=== PATIENT | female | born 1960 | race Caucasian/White ===

== ENCOUNTER → 2018-07-07 | Outpatient (CLI) | payer BC ==
--- NOTE | 2018-07-07 17:35 | KCIC ---
Bilateral digital screening mammograms: Reason for examination: Routine screening. Comparison is made to previous studies dated 12/12/2015 and 06/28/2014. Interpretation was made with the benefit of CAD. The skin show no abnormalities. The right nipple appears to be slightly flattened/inverted when compared to previous exam. No abnormal axillary lymph nodes are seen. The breast parenchyma shows scattered fibroglandular density. (Breast density: Category B.) There is some focally increased parenchymal density in the subareolar position of the right breast. Recommend further evaluation with coned compression views and ultrasound. There are no other dominant masses, suspicious calcifications or architectural distortions. Impression: Focal increased nodularity in the subareolar position of the right breast. Recommend further evaluation with coned compression views and ultrasound. BI-RADS Category 0: Incomplete. Needs additional imaging evaluation. "Our facility is accredited by the [employer] Mammography [employer]." This patient's information has been entered into a reminder system for the patient to be notified with the results of her examination and a target date for the next mammogram. Electronically signed by: April Montgomery MD (07/07/2018 5:32 PM) [id number]
== END | disposition home or self-care (01) ==
LOC: KCIC MAMMO 17:01
PROVIDERS: ATTEND Obstetrics & Gynecology
DX: Z12.31 Encounter for screening mammogram for malignant neoplasm of breast (principal)
CPT/HCPCS: 77067

== ENCOUNTER → 2018-07-24 | Outpatient (CLI) | payer BC ==
--- NOTE | 2018-07-24 17:26 | KCIC ---
Right breast diagnostic digital mammograms: Reason for examination: Nodular density in the subareolar position of the right breast on screening mammogram. Comparison is made to mammographic exam dated 08/06/2018. Coned compression views were obtained in CC, oblique and lateral projections. Nodular asymmetry persists in the subareolar position of the right breast. Further evaluation with ultrasound will follow. IMPRESSION: Nodular asymmetry in the subareolar position of the right breast. Ultrasound to follow. BI-RADS Category 0: Incomplete. Needs additional imaging evaluation. Right breast ultrasound: Ultrasound examination of the right breast was performed with attention to the retroareolar area and right axilla. There is a heterogeneous hypoechoic nodule which is taller than wide in the retroareolar position measuring 1.2 x 1 cm in greatest dimensions. Further evaluation with ultrasound biopsy is recommended. No other cystic or solid lesions are seen. No abnormal appearing lymph nodes are seen in the axilla. IMPRESSION: 1.2 x 1 cm nodule in the retroareolar position of the right breast which corresponds to the area of mammographic concern. Recommend further evaluation with ultrasound biopsy. BI-RADS Category 4: Suspicious. These findings have been discussed with the patient and the patient's physician will be notified about these findings when their office reopens in the morning. "Our facility is accredited by the [employer] Mammography [employer]." This patient's information has been entered into a reminder system for the patient to be notified with the results of her examination and a target date for the next mammogram. Electronically signed by: April Montgomery MD (07/24/2018 5:22 PM) [id number]
== END | disposition home or self-care (01) ==
LOC: KCIC MAMMO 09:42
PROVIDERS: ATTEND Obstetrics & Gynecology
DX: N63.11 Unspecified lump in the right breast, upper outer quadrant (principal)
CPT/HCPCS: 76641; 77065

== ENCOUNTER 2020-01-26 05:22 | Inpatient (IN) | payer BC ==
[~2020-01-26] VITALS: Ht 162.6 cm; Wt 59.0 kg
[2020-01-26] MEDS ORDERED: fentaNYL PF VIAL 100 MCG/2 ML VIAL IVP ONE (07:15)
[2020-01-26] MEDS ORDERED: PIPERACILLIN/TAZOBACTAM 3.375 GM in IV NORMAL SALINE 50ML 50 ML IV ONE (07:15)
[2020-01-26 07:42] LABS: BASO % 1 % (0-3); EOS % 0 % (0-3); HEMATOCRIT 40.9 % (36.0-47.0); HEMOGLOBIN 14.4 g/dL (12.0-15.5); LYMPH # 0.9 x10^3/uL (1.0-4.8); LYMPH % 8 % (24-48); MEAN CORPUSCULAR HEMOGLOBIN 33 pg (25-35); MEAN CORPUSCULAR HGB CONC 35 g/dL (31-37); MEAN CORPUSCULAR VOLUME 95 fL (79-100); MONO # 1.1 x10^3/uL (0.0-1.1); MONO % 10 % (0-9); NEUT # 8.6 x10^3/uL (1.8-7.7); NEUT % 81 % (31-73); PLATELET COUNT 222 x10^3/uL (140-400); RED BLOOD COUNT 4.32 x10^6/uL (3.50-5.40); RED CELL DISTRIBUTION WIDTH 13.8 % (11.5-14.5); WHITE BLOOD COUNT 10.6 x10^3/uL (4.0-11.0)
[2020-01-26 07:52] LABS: CALCIUM 8.4 mg/dL (8.5-10.1); CREATININE 0.7 mg/dL (0.6-1.0); GFR 85.6; POTASSIUM 4.3 mmol/L (3.5-5.1)
[2020-01-26 08:00] LABS: ALBUMIN 3.4 g/dL (3.4-5.0); ALBUMIN/GLOBULIN RATIO 1.2 (1.0-1.7); TOTAL BILIRUBIN 0.5 mg/dL (0.2-1.0); TOTAL PROTEIN 6.2 g/dL (6.4-8.2)
[2020-01-26] MEDS ORDERED: IOHEXOL 300 MG/ML 100ML VIAL. IV ONE (08:30)
--- NOTE | 2020-01-26 08:59 | RAD ---
CT pelvis with contrast PQRS statement: CT scans at this facility use dose reduction including either automated exposure control, iterative reconstructions, and /or weight based radiation dosing via mA and kV modification when appropriate to reduce radiation dose to as low as reasonably achievable. Contrast: 75 mL Omnipaque 300 intravenous contrast. HISTORY: Rectal pain and swelling. Perirectal abscess. FINDINGS: L5-S1 degenerative disc disease with disc height loss, disc bulge and endplate spurring as well as facet osteoarthritis with spurring with spinal canal and neural foraminal stenoses. Sigmoid diverticulosis. Uterus, ovaries, bladder unremarkable. Plaquing of the iliac arteries and femoral arteries. There is not a well delineated ring-enhancing abscess. At the region of the anal canal slightly right of midline there is an indistinct 3 cm oblong hypodensity best demonstrated axial images 70-78, sagittal images 50-61 and coronal images 46-53, it is possible this represents edematous thickening and enlargement of the anal canal itself although given that it is somewhat eccentric from midline a perianal abscess is possible. There is also asymmetric soft tissue edema along the right medial buttock leading up to the intergluteal cleft and anal canal. There is a moderate volume of stool within the rectum. No adenopathy. IMPRESSION: Soft tissue edema of the right medial buttock leading up to the intergluteal cleft and anal canal. There is indistinct 3 cm oblong hypodensity at the region of the anal canal slightly right of midline which could be edematous thickening of the anal canal though given the eccentric positioning a ill-defined early developing perianal abscess is possible, although there is no ring enhancement present to definitively differentiate a drainable abscess from localized phlegmonous edema. This may be more definitively characterized with MR imaging. Electronically signed by: Mario Grayson MD (01/26/2020 8:56 AM) [id number]
--- NOTE | 2020-01-26 09:12 | PHYS DOC ---
Past Medical History Past Medical History: Alcoholism, Cancer Past Surgical History: Cancer Surgery Additional Past Surgical Histo: Right breast Smoking Status: Current Every Day Smoker Additional Information: 1 ppd Alcohol Use: Heavy Additional Information: 1-2 beers per day General Adult EDM: Chief Complaint: RECTAL PAIN HPI: HPI: Patient is a 59 year old female who presented to ER today for evaluation of rectal pain since last Saturday. Patient complained of pain with bowel movement. Patient denies any fever, no nausea vomiting, no abdominal pain. Patient has history of breast cancer status post remission. Patient denies any cough, no fever, no trouble breathing. Patient denies any recent exposure to anybody who tested positive for COVID-19. Review of Systems: Review of Systems: Constitutional: Denies fever or chills. [] Eyes: Denies change in visual acuity. [] HENT: Denies nasal congestion or sore throat. [] Respiratory: Denies cough or shortness of breath. [] Cardiovascular: Denies chest pain or edema. [] GI: Denies abdominal pain, nausea, vomiting, bloody stools or diarrhea. Positive for rectal pain : Denies dysuria. [] Musculoskeletal: Denies back pain or joint pain. [] Integument: Denies rash. [] Neurologic: Denies headache, focal weakness or sensory changes. [] Endocrine: Denies polyuria or polydipsia. [] Lymphatic: Denies swollen glands. [] Psychiatric: Denies depression or anxiety. [] Heart Score: Risk Factors: Risk Factors: DM, Current or recent (<one month) smoker, HTN, HLP, family history of CAD, obesity. Risk Scores: Score 0 - 3: 2.5% MACE over next 6 weeks - Discharge Home Score 4 - 6: 20.3% MACE over next 6 weeks - Admit for Clinical Observation Score 7 - 10: 72.7% MACE over next 6 weeks - Early Invasive Strategies Current Medications: Current Medications Medications (Trade) Dose Ordered Sig/Alona Start Time Stop Time Status Last Admin Dose Admin Fentanyl Citrate (Fentanyl 2ml Vial) 50 mcg 1X ONCE 01/26/20 07:15 01/26/20 07:16 DC 01/26/20 07:32 50 MCG Iohexol (Omnipaque 300 Mg/ml) 75 ml 1X ONCE 01/26/20 08:30 01/26/20 08:31 DC 01/26/20 08:45 75 ML Piperacillin Sod/ Tazobactam Sod 3.375 gm/Sodium Chloride 50 ml @ 100 mls/hr 1X ONCE 01/26/20 07:15 01/26/20 07:44 DC 01/26/20 07:34 100 MLS/HR Allergies: Allergies: Allergies Coded Allergies Type Severity Reaction Last Updated Verified No Known Drug Allergies 01/26/20 No Physical Exam: PE: Constitutional: Well developed, well nourished, no acute distress, non-toxic appearance. [] HENT: Normocephalic, atraumatic, bilateral external ears normal, oropharynx moist, no oral exudates, nose normal. [] Eyes: PERRLA, EOMI, conjunctiva normal, no discharge. [] Neck: Normal range of motion, no tenderness, supple, no stridor. [] Cardiovascular:Heart rate regular rhythm, no murmur [] Lungs & Thorax: Bilateral breath sounds clear to auscultation [] Abdomen: Bowel sounds normal, soft, no tenderness, no masses, no pulsatile masses. RECTAL EXAM: LARGE NON-THROMBOSED EXTERNAL HEMORRHOID AT 9 OCLOCK POSITION. THERE IS A TENDER, SWOLLEN MASS ON RIGHT SIDE PERIRECTAL AREA, RIGHT BUTTOCK IS SWOLLEN. Skin: Warm, dry, no erythema, no rash. [] Back: No tenderness, no CVA tenderness. [] Extremities: No tenderness, no cyanosis, no clubbing, ROM intact, no edema. [] Neurologic: Alert and oriented X 3, normal motor function, normal sensory function, no focal deficits noted. [] Psychologic: Affect normal, judgement normal, mood normal. [] Current Patient Data: Labs: Laboratory Tests Test 01/26/20 07:25 White Blood Count 10.6 x10^3/uL (4.0-11.0) Red Blood Count 4.32 x10^6/uL (3.50-5.40) Hemoglobin 14.4 g/dL (12.0-15.5) Hematocrit 40.9 % (36.0-47.0) Mean Corpuscular Volume 95 fL (79-100) Mean Corpuscular Hemoglobin 33 pg (25-35) Mean Corpuscular Hemoglobin Concent 35 g/dL (31-37) Red Cell Distribution Width 13.8 % (11.5-14.5) Platelet Count 222 x10^3/uL (140-400) Neutrophils (%) (Auto) 81 % (31-73) H Lymphocytes (%) (Auto) 8 % (24-48) L Monocytes (%) (Auto) 10 % (0-9) H Eosinophils (%) (Auto) 0 % (0-3) Basophils (%) (Auto) 1 % (0-3) Neutrophils # (Auto) 8.6 x10^3/uL (1.8-7.7) H Lymphocytes # (Auto) 0.9 x10^3/uL (1.0-4.8) L Monocytes # (Auto) 1.1 x10^3/uL (0.0-1.1) Eosinophils # (Auto) 0.0 x10^3/uL (0.0-0.7) Basophils # (Auto) 0.0 x10^3/uL (0.0-0.2) Prothrombin Time 13.0 SEC (11.7-14.0) Prothrombin Time INR 1.0 (0.8-1.1) Activated Partial Thromboplast Time 25 SEC (24-38) Sodium Level 140 mmol/L (136-145) Potassium Level 4.3 mmol/L (3.5-5.1) Chloride Level 104 mmol/L (98-107) Carbon Dioxide Level 27 mmol/L (21-32) Anion Gap 9 (6-14) Blood Urea Nitrogen 8 mg/dL (7-20) Creatinine 0.7 mg/dL (0.6-1.0) Estimated GFR (Cockcroft-Gault) 85.6 BUN/Creatinine Ratio 11 (6-20) Glucose Level 121 mg/dL (70-99) H Calcium Level 8.4 mg/dL (8.5-10.1) L Total Bilirubin 0.5 mg/dL (0.2-1.0) Aspartate Amino Transferase (AST) 16 U/L (15-37) Alanine Aminotransferase (ALT) 25 U/L (14-59) Alkaline Phosphatase 90 U/L (46-116) Total Protein 6.2 g/dL (6.4-8.2) L Albumin 3.4 g/dL (3.4-5.0) Albumin/Globulin Ratio 1.2 (1.0-1.7) Laboratory Tests 01/26/20 07:25 Laboratory Tests 01/26/20 07:25 Vital Signs: Vital Signs Date Time Temp Pulse Resp B/P (MAP) Pulse Ox O2 Delivery O2 Flow Rate FiO2 01/26/20 08:04 73 16 114/59 (77) 98 Room Air 01/26/20 05:39 98.0 98.0 EKG: EKG: [] Radiology/Procedures: Radiology/Procedures: [][facility] [address] [place] [address] IMAGING REPORT Signed PATIENT: SANDRITA ZHENG AACCOUNT: [id number] : 1960 LOCATION: ER AGE: 59 SEX: F EXAM STATUS: REG ER ORD. PHYSICIAN: MAGY ARRIAGA DO REASON: RECTAL PAIN AND SWELLING, EVALUATE FOR PERIRECTAL ABSCESS PROCEDURE: CT PELVIS W/CONTRAST CT pelvis with contrast PQRS statement: CT scans at this facility use dose reduction including either automated exposure control, iterative reconstructions, and /or weight based radiation dosing via mA and kV modification when appropriate to reduce radiation dose to as low as reasonably achievable. Contrast: 75 mL Omnipaque 300 intravenous contrast. HISTORY: Rectal pain and swelling. Perirectal abscess. FINDINGS: L5-S1 degenerative disc disease with disc height loss, disc bulge and endplate spurring as well as facet osteoarthritis with spurring with spinal canal and neural foraminal stenoses. Sigmoid diverticulosis. Uterus, ovaries, bladder unremarkable. Plaquing of the iliac arteries and femoral arteries. There is not a well delineated ring-enhancing abscess. At the region of the anal canal slightly right of midline there is an indistinct 3 cm oblong hypodensity best demonstrated axial images 70-78, sagittal images 50-61 and coronal images 46-53, it is possible this represents edematous thickening and enlargement of the anal canal itself although given that it is somewhat eccentric from midline a perianal abscess is possible. There is also asymmetric soft tissue edema along the right medial buttock leading up to the intergluteal cleft and anal canal. There is a moderate volume of stool within the rectum. No adenopathy. IMPRESSION: Soft tissue edema of the right medial buttock leading up to the intergluteal cleft and anal canal. There is indistinct 3 cm oblong hypodensity at the region of the anal canal slightly right of midline which could be edematous thickening of the anal canal though given the eccentric positioning a ill-defined early developing perianal abscess is possible, although there is no ring enhancement present to definitively differentiate a drainable abscess from localized phlegmonous edema. This may be more definitively characterized with MR imaging. Electronically signed by: Spenser Grayson MD (01/26/2020 8:56 AM) [id number] DICTATED and SIGNED BY: SPENSER GRAYSON MD DATE: 01/26/20 0856 Course & Med Decision Making: Course & Med Decision Making Pertinent Labs and Imaging studies reviewed. (See chart for details) Patient is a 59-year-old female who was evaluated in the ER due to rectal pain, CT scan of her pelvic show she had early case of perianal abscess. Patient will be admitted for pain control and IV antibiotic, general surgeon Dr. Babak Vazquez was consulted who will see the patient today. Fernando Disclaimer: Fernando Disclaimer: This electronic medical record was generated, in whole or in part, using a voice recognition dictation system. Departure Departure Impression: Primary Impression: Perianal abscess Disposition: ADMITTED INPATIENT Admitting Physician: PHYLLIS Condition: STABLE (DR. MEJIA) Referrals: NO PCP (PCP) MAGY ARRIAGA DO Jan 26, 2020 09:12
[2020-01-26] MEDS ORDERED: ACETAMINOPHEN 325 MG TABLET. PO PRN (10:00)
[2020-01-26] MEDS ORDERED: DOCUSATE SODIUM 100 MG CAPSULE. PO PRN (10:00)
[2020-01-26] MEDS ORDERED: ZOLPIDEM 5 MG TABLET. PO PRN (10:00)
[2020-01-26] MEDS ORDERED: PIPERACILLIN/TAZOBACTAM 4.5 GM in IV NORMAL SALINE 100ML 100 ML IV SCH (10:00)
[2020-01-26] MEDS ORDERED: LORazepam 0.5 MG TABLET PO PRN (10:00)
[2020-01-26] MEDS ORDERED: ONDANSETRON PF 4 MG/2 ML VIAL. IV PRN ×2 (10:00→10:15)
[2020-01-26] MEDS ORDERED: guaiFENesin ORAL 200 MG/10 ML LIQUID. PO PRN (10:00)
[2020-01-26] MEDS ORDERED: ALBUTEROL SULFATE 2.5 MG/3 ML NEBU. NEB PRN (10:00)
[2020-01-26] MEDS ORDERED: MORPHINE SULFATE 4 MG/ML VIAL. IV PRN (10:15)
[2020-01-26] MEDS: MORPHINE SULFATE 2 MG/ML VIAL. IV PRN ×2 (10:25→21:58)
[2020-01-26] MEDS: IV NORMAL SALINE 1000ML BAG 1,000 ML IV SCH ×2 (10:27→21:58)
[2020-01-26 12:00] VITALS: BP 122/66
[2020-01-26] MEDS ORDERED: ANAS1TAB47 PO (12:44)
[2020-01-26] MEDS ORDERED: DOCU-109 PO (12:44)
[2020-01-26] MEDS: PIPERACILLIN/TAZOBACTAM 3.375 GM in IV NORMAL SALINE 50ML 50 ML IV SCH ×3 (12:49→23:59)
--- NOTE | 2020-01-26 12:56 | PDOC2 ---
CONSULT Date of Consult Date of Consult DATE: 01/26/20 TIME: 12:55 History of Present Illness Reason for Visit: The patient is a 59 year old female who reported with perirectal pain for the last few days. She denies nausea or vomiting. The ER evaluation including a CT scan were suggestive of a perirectal abscess Past Medical History Past Medical History ETOH, breast cancer Past Surgical History Past Surgical History mastectomy Social History 1 pack per day ALCOHOL: heavy Current Problem List Problem List Problems Medical Problems: (1) Perianal abscess Status: Acute Current Medications Current Medications Current Medications Fentanyl Citrate (Fentanyl 2ml Vial) 50 mcg 1X ONCE IVP Last administered on 01/26/20at 07:32; Start 01/26/20 at 07:15; Stop 01/26/20 at 07:16; Status DC Piperacillin Sod/ Tazobactam Sod 3.375 gm/Sodium Chloride 50 ml @ 100 mls/hr 1X ONCE IV Last administered on 01/26/20at 07:34; Start 01/26/20 at 07:15; Stop 01/26/20 at 07:44; Status DC Iohexol (Omnipaque 300 Mg/ml) 75 ml 1X ONCE IV Last administered on 01/26/20at 08:45; Start 01/26/20 at 08:30; Stop 01/26/20 at 08:31; Status DC Sodium Chloride 1,000 ml @ 100 mls/hr Q10H IV Last administered on 01/26/20at 10:27; Start 01/26/20 at 09:58 Ondansetron HCl (Zofran) 4 mg PRN Q4HRS PRN IV NAUSEA/VOMITING; Start 01/26/20 at 10:00 Zolpidem Tartrate (Ambien) 5 mg PRN QHS PRN PO INSOMNIA; Start 01/26/20 at 10:00 Acetaminophen (Tylenol) 650 mg PRN Q4HRS PRN PO TEMP OVER 100.4F OR MILD PAIN; Start 01/26/20 at 10:00 Docusate Sodium (Colace) 100 mg PRN BID PRN PO HARD STOOLS; Start 01/26/20 at 10:00 Albuterol Sulfate (Ventolin Neb Soln) 2.5 mg PRN Q4HRS PRN NEB SHORTNESS OF BREATH; Start 01/26/20 at 10:00 Guaifenesin (Robitussin) 200 mg PRN Q4HRS PRN PO COUGH; Start 01/26/20 at 10:00 Lorazepam (Ativan) 0.5 mg PRN Q4HRS PRN PO ANXIETY / AGITATION; Start 01/26/20 at 10:00 Piperacillin Sod/ Tazobactam Sod 4.5 gm/Sodium Chloride 100 ml @ 200 mls/hr Q6H IV ; Start 01/26/20 at 10:00; Status UNV Morphine Sulfate (Morphine Sulfate) 2 mg PRN Q3HRS PRN IV severe pain Last administered on 01/26/20at 10:25; Start 01/26/20 at 10:00 Ondansetron HCl (Zofran) 4 mg PRN Q8HRS PRN IV NAUSEA/VOMITING; Start 01/26/20 at 10:15; Stop 01/27/20 at 10:14 Morphine Sulfate (Morphine Sulfate) 4 mg PRN Q2HR PRN IV PAIN Last administered on 01/26/20at 12:48; Start 01/26/20 at 10:15; Stop 01/27/20 at 10:14 Piperacillin Sod/ Tazobactam Sod 3.375 gm/Sodium Chloride 50 ml @ 100 mls/hr Q6HRS IV Last administered on 01/26/20at 12:49; Start 01/26/20 at 12:00 Ondansetron HCl (Zofran) 4 mg PRN Q6HRS PRN IV NAUSEA/VOMITING; Start 01/27/20 at 07:00; Stop 01/28/20 at 06:59; Status UNV Fentanyl Citrate (Fentanyl 2ml Vial) 25 mcg PRN Q5MIN PRN IV MILD PAIN 1-3; Start 01/27/20 at 07:00; Stop 01/28/20 at 06:59; Status UNV Fentanyl Citrate (Fentanyl 2ml Vial) 50 mcg PRN Q5MIN PRN IV MODERATE TO SEVERE PAIN; Start 01/27/20 at 07:00; Stop 01/28/20 at 06:59; Status UNV Morphine Sulfate (Morphine Sulfate) 1 mg PRN Q10MIN PRN IV SEVERE PAIN 7-10; Start 01/27/20 at 07:00; Stop 01/28/20 at 06:59; Status UNV Ringer's Solution 1,000 ml @ 30 mls/hr Q24H IV ; Start 01/27/20 at 07:00; Stop 01/27/20 at 18:59; Status UNV Lidocaine HCl (Xylocaine-Mpf 1% 2ml Vial) 2 ml PRN 1X PRN ID PRIOR TO IV START; Start 01/27/20 at 07:00; Stop 01/28/20 at 06:59; Status UNV Hydromorphone HCl (Dilaudid) 0.5 mg PRN Q10MIN PRN IV SEV PAIN, Second choice; Start 01/27/20 at 07:00; Stop 01/28/20 at 06:59; Status UNV Prochlorperazine Edisylate (Compazine) 5 mg PACU PRN PRN IV NAUSEA, MRX1; Start 01/27/20 at 07:00; Stop 01/28/20 at 06:59; Status UNV Active Scripts Active Reported Arimidex (Anastrozole) 1 Mg Tablet 1 Tab PO DAILY 30 Days Colace (Docusate Sodium) 100 Mg Capsule 100 Mg PO DAILY Allergies Allergies: Coded Allergies: No Known Drug Allergies (Unverified , 01/26/20) ROS General: No: Chills, Night Sweats, Fatigue, Malaise, Appetite, Other PSYCHOLOGICAL ROS: YES: Disorientation Eyes: No Blurry vision, No Decreased vision, No Double vision, No Dry eyes, No Excessive tearing, No Eye Pain, No Itchy Eyes, No Loss of vision, No Photophobia, No Scotomata, No Uses contacts, No Uses glasses, No Other HEENT: No: Heacaches, Visual Changes, Hearing change, Nasal congestion, Nasal discharge, Oral lesions, Sinus pain, Sore Throat, Epistaxis, Sneezing, Snoring, Tinnitus, Vertigo, Vocal changes, Other ALLERGY AND IMMUNOLOGY: No: Hives, Insect Bite Sensitivity, Itchy/Watery Eyes, Nasal Congestion, Post Nasal Drip, Seasonal Allergies, Other Hematological and Lymphatic: No: Bleeding Problems, Blood Clots, Blood Transf usions, Brusing, Night Sweats, Pallor, Swollen Lymph Nodes, Other Breast: No New/Changing Breast Lumps, No Nipple changes, No Nipple discharge, No Other Respiratory: No: Cough, Hemoptysis, Orthopnea, Pleuritic Pain, Shortness of breath, SOB with excertion, Sputum Changes, Stridor, Tachypnea, Wheezing, Other Cardiovascular: No Chest Pain, No Palpitations, No Orthopnea, No Paroxysmal Noc. Dyspnea, No Edema, No Lt Headedness, No Other Gastrointestinal: No Nausea, No Vomiting, No Abdominal Pain, No Diarrhea, No Constipation, No Melena, No Hematochezia, No Other Genitourinary: No Dysuria, No Frequency, No Incontinence, No Hematuria, No Retention, No Discharge, No Urgency, No Pain, No Flank Pain, No Other, No , No , No , No , No , No , No Musculoskeletal: No Gait Disturbance, No Joint Pain, No Joint Stiffness, No Joint Swelling, No Muscle Pain, No Muscular Weakness, No Pain In:, No Swelling In:, No Other Neurological: No Behavorial Changes, No Bowel/Bladder ControlChng, No Confusion, No Dizziness, No Gait Disturbance, No Headaches, No Impaired Coord/balance, No Memory Loss, No Numbness/Tingling, No Seizures, No Speech Problems, No Tremors, No Visual Changes, No Weakness, No Other Skin: No Dry Skin, No Eczema, No Hair Changes, No Lumps, No Mole Changes, No Mottling, No Nail Changes, No Pruritus, No Rash, No Skin Lesion Changes, No Other, No Acne Physical Exam Physical Exam R perirectal abscess, purulent fluid present General: Alert, Oriented X3, Cooperative HEENT: Atraumatic Lungs: Clear to auscultation Abdomen: Soft, No tenderness Extremities: No clubbing, No cyanosis Skin: No rashes Vitals VITALS Vital Signs Date Time Temp Pulse Resp B/P (MAP) Pulse Ox O2 Delivery O2 Flow Rate FiO2 01/26/20 12:48 Room Air 01/26/20 12:00 99.2 68 17 122/66 (84) 97 99.2 Labs Labs Laboratory Tests Test 01/26/20 07:25 White Blood Count 10.6 x10^3/uL (4.0-11.0) Red Blood Count 4.32 x10^6/uL (3.50-5.40) Hemoglobin 14.4 g/dL (12.0-15.5) Hematocrit 40.9 % (36.0-47.0) Mean Corpuscular Volume 95 fL (79-100) Mean Corpuscular Hemoglobin 33 pg (25-35) Mean Corpuscular Hemoglobin Concent 35 g/dL (31-37) Red Cell Distribution Width 13.8 % (11.5-14.5) Platelet Count 222 x10^3/uL (140-400) Neutrophils (%) (Auto) 81 % (31-73) Lymphocytes (%) (Auto) 8 % (24-48) Monocytes (%) (Auto) 10 % (0-9) Eosinophils (%) (Auto) 0 % (0-3) Basophils (%) (Auto) 1 % (0-3) Neutrophils # (Auto) 8.6 x10^3/uL (1.8-7.7) Lymphocytes # (Auto) 0.9 x10^3/uL (1.0-4.8) Monocytes # (Auto) 1.1 x10^3/uL (0.0-1.1) Eosinophils # (Auto) 0.0 x10^3/uL (0.0-0.7) Basophils # (Auto) 0.0 x10^3/uL (0.0-0.2) Prothrombin Time 13.0 SEC (11.7-14.0) Prothromb Time International Ratio 1.0 (0.8-1.1) Activated Partial Thromboplast Time 25 SEC (24-38) Sodium Level 140 mmol/L (136-145) Potassium Level 4.3 mmol/L (3.5-5.1) Chloride Level 104 mmol/L (98-107) Carbon Dioxide Level 27 mmol/L (21-32) Anion Gap 9 (6-14) Blood Urea Nitrogen 8 mg/dL (7-20) Creatinine 0.7 mg/dL (0.6-1.0) Estimated GFR (Cockcroft-Gault) 85.6 BUN/Creatinine Ratio 11 (6-20) Glucose Level 121 mg/dL (70-99) Calcium Level 8.4 mg/dL (8.5-10.1) Total Bilirubin 0.5 mg/dL (0.2-1.0) Aspartate Amino Transf (AST/SGOT) 16 U/L (15-37) Alanine Aminotransferase (ALT/SGPT) 25 U/L (14-59) Alkaline Phosphatase 90 U/L (46-116) Total Protein 6.2 g/dL (6.4-8.2) Albumin 3.4 g/dL (3.4-5.0) Albumin/Globulin Ratio 1.2 (1.0-1.7) Laboratory Tests Test 01/26/20 07:25 White Blood Count 10.6 x10^3/uL (4.0-11.0) Red Blood Count 4.32 x10^6/uL (3.50-5.40) Hemoglobin 14.4 g/dL (12.0-15.5) Hematocrit 40.9 % (36.0-47.0) Mean Corpuscular Volume 95 fL (79-100) Mean Corpuscular Hemoglobin 33 pg (25-35) Mean Corpuscular Hemoglobin Concent 35 g/dL (31-37) Red Cell Distribution Width 13.8 % (11.5-14.5) Platelet Count 222 x10^3/uL (140-400) Neutrophils (%) (Auto) 81 % (31-73) Lymphocytes (%) (Auto) 8 % (24-48) Monocytes (%) (Auto) 10 % (0-9) Eosinophils (%) (Auto) 0 % (0-3) Basophils (%) (Auto) 1 % (0-3) Neutrophils # (Auto) 8.6 x10^3/uL (1.8-7.7) Lymphocytes # (Auto) 0.9 x10^3/uL (1.0-4.8) Monocytes # (Auto) 1.1 x10^3/uL (0.0-1.1) Eosinophils # (Auto) 0.0 x10^3/uL (0.0-0.7) Basophils # (Auto) 0.0 x10^3/uL (0.0-0.2) Prothrombin Time 13.0 SEC (11.7-14.0) Prothromb Time International Ratio 1.0 (0.8-1.1) Activated Partial Thromboplast Time 25 SEC (24-38) Sodium Level 140 mmol/L (136-145) Potassium Level 4.3 mmol/L (3.5-5.1) Chloride Level 104 mmol/L (98-107) Carbon Dioxide Level 27 mmol/L (21-32) Anion Gap 9 (6-14) Blood Urea Nitrogen 8 mg/dL (7-20) Creatinine 0.7 mg/dL (0.6-1.0) Estimated GFR (Cockcroft-Gault) 85.6 BUN/Creatinine Ratio 11 (6-20) Glucose Level 121 mg/dL (70-99) Calcium Level 8.4 mg/dL (8.5-10.1) Total Bilirubin 0.5 mg/dL (0.2-1.0) Aspartate Amino Transf (AST/SGOT) 16 U/L (15-37) Alanine Aminotransferase (ALT/SGPT) 25 U/L (14-59) Alkaline Phosphatase 90 U/L (46-116) Total Protein 6.2 g/dL (6.4-8.2) Albumin 3.4 g/dL (3.4-5.0) Albumin/Globulin Ratio 1.2 (1.0-1.7) Assessment/Plan Assessment/Plan Perirectal abscess, recommend I and D. The patient was not tested for Covid. P er OR protocol will order stat, schedule for surgery tomorrow pending results. ABBY AVILA MD Jan 26, 2020 12:56
--- NOTE | 2020-01-26 14:29 | PDOC1 ---
History and Physical Date of Admission Date of Admission 01/26/2020 Identification/Chief Complaint Chief Complaint Rectal pain Source Source: Chart review, Patient History of Present Illness History of Present Illness Patient is a 59-year-old female who was in her usual state of health until Saturday prior to her admission approximately 4 days prior to her admission when she started complaining of some constipation and developed after some straining perirectal pain. The patient denied any bleeding no fever or chills no diaphoresis the patient denies any recent use of antibiotics. The patient has tried to self medicate at home with Advil due to the discomfort that she has experienced over the last couple days. The pain she describes as a sharp sensation 7-8 out of 10 intensity on the worst episodes with no associated symptoms. The patient denies urinary symptoms no recent trauma to the affected area was reported either. She denies any headache no chest pain no palpitations no nausea or vomiting no diarrhea reported. Of note is that the patient had history of breast cancer, over the right side, and she received chemoradiation last year. She was found to have the following findings on the CAT scan of her pelvis Soft tissue edema of the right medial buttock leading up to the intergluteal cleft and anal canal. There is indistinct 3 cm oblong hypodensity at the region of the anal canal slightly right of midline which could be edematous thickening of the anal canal though given the eccentric positioning a ill-defined early developing perianal abscess is possible, although there is no ring enhancement present to definitively differentiate a drainable abscess from localized phlegmonous edema. This may be more definitively characterized with MR imaging. She will be admitted for further evaluation and treatment, at the time of my note the only complaint is discomfort over the affected area, plan of care explained in detail and all of her concerns were addressed to the best of my abilities Past Medical History Heme/Onc: Other (Breast cancer) Family History Family History: Other (Reviewed and found negative and noncontributory to the present) Social History Smoke: 1 pack per day ALCOHOL: heavy Current Problem List Problem List Problems Medical Problems: (1) Perianal abscess Status: Acute Current Medications Current Medications Current Medications Medications (Trade) Dose Ordered Sig/Alona Start Time Stop Time Status Last Admin Dose Admin Acetaminophen (Tylenol) 650 mg PRN Q4HRS PRN 01/26/20 10:00 Albuterol Sulfate (Ventolin Neb Soln) 2.5 mg PRN Q4HRS PRN 01/26/20 10:00 Docusate Sodium (Colace) 100 mg PRN BID PRN 01/26/20 10:00 Fentanyl Citrate (Fentanyl 2ml Vial) 50 mcg PRN Q5MIN PRN 01/27/20 07:00 01/28/20 06:59 Guaifenesin (Robitussin) 200 mg PRN Q4HRS PRN 01/26/20 10:00 Hydromorphone HCl (Dilaudid) 0.5 mg PRN Q10MIN PRN 01/27/20 07:00 01/28/20 06:59 Iohexol (Omnipaque 300 Mg/ml) 75 ml 1X ONCE 01/26/20 08:30 01/26/20 08:31 DC 01/26/20 08:45 75 ML Lidocaine HCl (Xylocaine-Mpf 1% 2ml Vial) 2 ml PRN 1X PRN 01/27/20 07:00 01/28/20 06:59 Lorazepam (Ativan) 0.5 mg PRN Q4HRS PRN 01/26/20 10:00 Morphine Sulfate (Morphine Sulfate) 1 mg PRN Q10MIN PRN 01/27/20 07:00 01/28/20 06:59 Ondansetron HCl (Zofran) 4 mg PRN Q6HRS PRN 01/27/20 07:00 01/28/20 06:59 Piperacillin Sod/ Tazobactam Sod 3.375 gm/Sodium Chloride 50 ml @ 100 mls/hr Q6HRS 01/26/20 12:00 01/26/20 12:49 100 MLS/HR Piperacillin Sod/ Tazobactam Sod 4.5 gm/Sodium Chloride 100 ml @ 200 mls/hr Q6H 01/26/20 10:00 UNV Prochlorperazine Edisylate (Compazine) 5 mg PACU PRN PRN 01/27/20 07:00 01/28/20 06:59 Ringer's Solution 1,000 ml @ 30 mls/hr Q24H 01/27/20 07:00 01/27/20 18:59 Sodium Chloride 1,000 ml @ 100 mls/hr Q10H 01/26/20 09:58 01/26/20 10:27 100 MLS/HR Zolpidem Tartrate (Ambien) 5 mg PRN QHS PRN 01/26/20 10:00 Allergies Allergies Allergies Coded Allergies Type Severity Reaction Last Updated Verified No Known Drug Allergies 01/26/20 No ROS Review of System CONSTITUTIONAL: No fever or chills EYES: No recent changes SKIN: No rash or itching CARDIOVASCULAR: No chest pain, syncope, palpitations, or edema RESPIRATORY: No SOB or cough GASTROINTESTINAL: No nausea, vomiting or abdominal pain NEUROLOGICAL: No headaches or weakness ENDOCRINE: No cold or heat intolerance GENITOURINARY: No urgency or frequency of urination MUSCULOSKELETAL: No back pain or joint pain LYMPHATICS: No enlarged lymph nodes PSYCHIATRIC: No anxiety or depression Physical Exam Physical Exam GEN.: No apparent distress. Alert and oriented. HEENT: Head is normocephalic, atraumatic NECK: Supple. LUNGS: Clear to auscultation. HEART: RRR, S1, S2 present. Peripheral pulses intact ABDOMEN: Soft, nontender. Positive bowel sounds. EXTREMITIES: Without any cyanosis. NEUROLOGIC: Normal speech, normal tone PSYCHIATRIC: Normal affect, normal mood. SKIN: No ulcerations Vitals Vitals Vital Signs Date Time Temp Pulse Resp B/P (MAP) Pulse Ox O2 Delivery O2 Flow Rate FiO2 01/26/20 13:22 Room Air 01/26/20 12:00 99.2 68 17 122/66 (84) 97 99.2 Labs Labs Laboratory Tests Test 01/26/20 07:25 White Blood Count 10.6 x10^3/uL (4.0-11.0) Red Blood Count 4.32 x10^6/uL (3.50-5.40) Hemoglobin 14.4 g/dL (12.0-15.5) Hematocrit 40.9 % (36.0-47.0) Mean Corpuscular Volume 95 fL (79-100) Mean Corpuscular Hemoglobin 33 pg (25-35) Mean Corpuscular Hemoglobin Concent 35 g/dL (31-37) Red Cell Distribution Width 13.8 % (11.5-14.5) Platelet Count 222 x10^3/uL (140-400) Neutrophils (%) (Auto) 81 % (31-73) Lymphocytes (%) (Auto) 8 % (24-48) Monocytes (%) (Auto) 10 % (0-9) Eosinophils (%) (Auto) 0 % (0-3) Basophils (%) (Auto) 1 % (0-3) Neutrophils # (Auto) 8.6 x10^3/uL (1.8-7.7) Lymphocytes # (Auto) 0.9 x10^3/uL (1.0-4.8) Monocytes # (Auto) 1.1 x10^3/uL (0.0-1.1) Eosinophils # (Auto) 0.0 x10^3/uL (0.0-0.7) Basophils # (Auto) 0.0 x10^3/uL (0.0-0.2) Prothrombin Time 13.0 SEC (11.7-14.0) Prothromb Time International Ratio 1.0 (0.8-1.1) Activated Partial Thromboplast Time 25 SEC (24-38) Sodium Level 140 mmol/L (136-145) Potassium Level 4.3 mmol/L (3.5-5.1) Chloride Level 104 mmol/L (98-107) Carbon Dioxide Level 27 mmol/L (21-32) Anion Gap 9 (6-14) Blood Urea Nitrogen 8 mg/dL (7-20) Creatinine 0.7 mg/dL (0.6-1.0) Estimated GFR (Cockcroft-Gault) 85.6 BUN/Creatinine Ratio 11 (6-20) Glucose Level 121 mg/dL (70-99) Calcium Level 8.4 mg/dL (8.5-10.1) Total Bilirubin 0.5 mg/dL (0.2-1.0) Aspartate Amino Transf (AST/SGOT) 16 U/L (15-37) Alanine Aminotransferase (ALT/SGPT) 25 U/L (14-59) Alkaline Phosphatase 90 U/L (46-116) Total Protein 6.2 g/dL (6.4-8.2) Albumin 3.4 g/dL (3.4-5.0) Albumin/Globulin Ratio 1.2 (1.0-1.7) Laboratory Tests Test 01/26/20 07:25 White Blood Count 10.6 x10^3/uL (4.0-11.0) Red Blood Count 4.32 x10^6/uL (3.50-5.40) Hemoglobin 14.4 g/dL (12.0-15.5) Hematocrit 40.9 % (36.0-47.0) Mean Corpuscular Volume 95 fL (79-100) Mean Corpuscular Hemoglobin 33 pg (25-35) Mean Corpuscular Hemoglobin Concent 35 g/dL (31-37) Red Cell Distribution Width 13.8 % (11.5-14.5) Platelet Count 222 x10^3/uL (140-400) Neutrophils (%) (Auto) 81 % (31-73) Lymphocytes (%) (Auto) 8 % (24-48) Monocytes (%) (Auto) 10 % (0-9) Eosinophils (%) (Auto) 0 % (0-3) Basophils (%) (Auto) 1 % (0-3) Neutrophils # (Auto) 8.6 x10^3/uL (1.8-7.7) Lymphocytes # (Auto) 0.9 x10^3/uL (1.0-4.8) Monocytes # (Auto) 1.1 x10^3/uL (0.0-1.1) Eosinophils # (Auto) 0.0 x10^3/uL (0.0-0.7) Basophils # (Auto) 0.0 x10^3/uL (0.0-0.2) Prothrombin Time 13.0 SEC (11.7-14.0) Prothromb Time International Ratio 1.0 (0.8-1.1) Activated Partial Thromboplast Time 25 SEC (24-38) Sodium Level 140 mmol/L (136-145) Potassium Level 4.3 mmol/L (3.5-5.1) Chloride Level 104 mmol/L (98-107) Carbon Dioxide Level 27 mmol/L (21-32) Anion Gap 9 (6-14) Blood Urea Nitrogen 8 mg/dL (7-20) Creatinine 0.7 mg/dL (0.6-1.0) Estimated GFR (Cockcroft-Gault) 85.6 BUN/Creatinine Ratio 11 (6-20) Glucose Level 121 mg/dL (70-99) Calcium Level 8.4 mg/dL (8.5-10.1) Total Bilirubin 0.5 mg/dL (0.2-1.0) Aspartate Amino Transf (AST/SGOT) 16 U/L (15-37) Alanine Aminotransferase (ALT/SGPT) 25 U/L (14-59) Alkaline Phosphatase 90 U/L (46-116) Total Protein 6.2 g/dL (6.4-8.2) Albumin 3.4 g/dL (3.4-5.0) Albumin/Globulin Ratio 1.2 (1.0-1.7) VTE Prophylaxis Ordered VTE Prophylaxis Devices: Yes VTE Pharmacological Prophylaxi: No Assessment/Plan Assessment/Plan Perirectal pain Suspected perianal abscess History of hemorrhoids History of constipation History of breast cancer currently in remission Hyperglycemia of unknown clinical significance, she denies compatible symptoms of diabetes Plan Consult surgery Broad-spectrum antibiotic Pain management Resume home medications once available for review DVT prophylaxis with SCDs Justicifation of Admission Dx: Justifications for Admission: Justification of Admission Dx: Yes Comments: Perianal abscess requiring surgical assessment MIGUEL MEJIA MD Jan 26, 2020 14:29
[2020-01-26 15:00] VITALS: BP 124/68
[2020-01-26 19:00] VITALS: BP 113/65
[2020-01-26 23:00] VITALS: BP 102/54
[2020-01-27] VITALS (12 sets, daily range): BP systolic 94–125; BP diastolic 40–79
[2020-01-27] MEDS: IV NORMAL SALINE 1000ML BAG 1,000 ML IV SCH ×2 (05:58→15:58)
[2020-01-27] MEDS: PIPERACILLIN/TAZOBACTAM 3.375 GM in IV NORMAL SALINE 50ML 50 ML IV SCH ×4 (06:01→23:42)
[2020-01-27] MEDS ORDERED: PROCHLORPERAZINE 10 MG/2 ML VIAL. IV PRN (07:00)
[2020-01-27] MEDS ORDERED: ONDANSETRON PF 4 MG/2 ML VIAL. IV PRN (07:00)
[2020-01-27] MEDS ORDERED: fentaNYL PF VIAL 100 MCG/2 ML VIAL IV PRN (07:00)
[2020-01-27] MEDS ORDERED: IV RINGERS,LACTATED 1000ML 1,000 ML IV SCH (07:00)
[2020-01-27] MEDS ORDERED: LIDOCAINE 1% PF 2 ML VIAL. ID PRN (07:00)
[2020-01-27] MEDS ORDERED: HYDROmorphone 2 MG/ML VIAL IV PRN (07:00)
[2020-01-27] MEDS ORDERED: MORPHINE SULFATE 2 MG/ML VIAL. IV PRN (07:00)
[2020-01-27] MEDS ORDERED: PROPOFOL 10 MG/ML (20ML) VIAL. IV ONE (08:30)
[2020-01-27] MEDS ORDERED: LIDOCAINE 2% PF 5 ML VIAL. ONE (08:30)
[2020-01-27] MEDS ORDERED: MIDAZOLAM HCL/PF 2 MG/2 ML VIAL. ONE (08:30)
[2020-01-27] MEDS ORDERED: ONDANSETRON PF 4 MG/2 ML VIAL. ONE (08:30)
[2020-01-27] MEDS ORDERED: fentaNYL PF VIAL 100 MCG/2 ML VIAL ONE ×2 (08:30→11:20)
[2020-01-27] MEDS ORDERED: DEXAMETHASONE SOD PHOS 4 MG/ML VIAL ONE (08:30)
--- NOTE | 2020-01-27 09:35 | PDOC ---
PROGRESS NOTES History of Present Illness History of Present Illness VTE Prophylaxis Ordered VTE Prophylaxis Devices: Yes VTE Pharmacological Prophylaxi: No impression Assessment/Plan Perirectal pain perianal abscess History of hemorrhoids History of constipation History of breast cancer currently in remission Hyperglycemia of unknown clinical significance, she denies compatible symptoms of diabetes Plan Consult surgery Broad-spectrum antibiotic Pain management Resume home medications once available for review DVT prophylaxis with SCDs d/w RN Operative Note Operative Note: Preoperative Diagnosis: Perirectal abscess Postoperative Diagnosis: Perianal mass, perirectal abscess Procedure: Incision and drainage of perirectal abscess, excision of perianal mass Surgeon: George Anesthesia: General EBL: 10 mL Specimen: Perianal mass to pathology Drains: None Complications: None Justicifation of Admission Dx: Justicifation of Admission Dx: Justifications for Admission: Justification of Admission Dx: Yes Comments: Perianal abscess requiring surgical assessment Vitals Vitals Vital Signs Date Time Temp Pulse Resp B/P (MAP) Pulse Ox O2 Delivery O2 Flow Rate FiO2 01/27/20 08:50 98.0 63 15 125/71 98 Room Air 98.0 Physical Exam General: Alert, Oriented X3, Cooperative Heart: Regular rate Lungs: Clear Abdomen: Normal bowel sounds, Soft, No tenderness Extremities: No clubbing, No cyanosis Skin: No rashes Assessment and Plan Assessmemt and Plan Problems Medical Problems: (1) Perianal abscess Status: Acute Comment Review of Relevant I have reviewed the following items chantel (where applicable) has been applied. Labs Laboratory Tests Test 01/26/20 07:25 01/26/20 09:18 White Blood Count 10.6 x10^3/uL (4.0-11.0) Red Blood Count 4.32 x10^6/uL (3.50-5.40) Hemoglobin 14.4 g/dL (12.0-15.5) Hematocrit 40.9 % (36.0-47.0) Mean Corpuscular Volume 95 fL (79-100) Mean Corpuscular Hemoglobin 33 pg (25-35) Mean Corpuscular Hemoglobin Concent 35 g/dL (31-37) Red Cell Distribution Width 13.8 % (11.5-14.5) Platelet Count 222 x10^3/uL (140-400) Neutrophils (%) (Auto) 81 % (31-73) Lymphocytes (%) (Auto) 8 % (24-48) Monocytes (%) (Auto) 10 % (0-9) Eosinophils (%) (Auto) 0 % (0-3) Basophils (%) (Auto) 1 % (0-3) Neutrophils # (Auto) 8.6 x10^3/uL (1.8-7.7) Lymphocytes # (Auto) 0.9 x10^3/uL (1.0-4.8) Monocytes # (Auto) 1.1 x10^3/uL (0.0-1.1) Eosinophils # (Auto) 0.0 x10^3/uL (0.0-0.7) Basophils # (Auto) 0.0 x10^3/uL (0.0-0.2) Prothrombin Time 13.0 SEC (11.7-14.0) Prothromb Time International Ratio 1.0 (0.8-1.1) Activated Partial Thromboplast Time 25 SEC (24-38) Sodium Level 140 mmol/L (136-145) Potassium Level 4.3 mmol/L (3.5-5.1) Chloride Level 104 mmol/L (98-107) Carbon Dioxide Level 27 mmol/L (21-32) Anion Gap 9 (6-14) Blood Urea Nitrogen 8 mg/dL (7-20) Creatinine 0.7 mg/dL (0.6-1.0) Estimated GFR (Cockcroft-Gault) 85.6 BUN/Creatinine Ratio 11 (6-20) Glucose Level 121 mg/dL (70-99) Calcium Level 8.4 mg/dL (8.5-10.1) Total Bilirubin 0.5 mg/dL (0.2-1.0) Aspartate Amino Transf (AST/SGOT) 16 U/L (15-37) Alanine Aminotransferase (ALT/SGPT) 25 U/L (14-59) Alkaline Phosphatase 90 U/L (46-116) Total Protein 6.2 g/dL (6.4-8.2) Albumin 3.4 g/dL (3.4-5.0) Albumin/Globulin Ratio 1.2 (1.0-1.7) Coronavirus (COVID-19)(PCR) Negative (NEGATIVE) Microbiology 01/26/20 Gram Stain - Final, Resulted 01/26/20 Aerobic and Anaerobic Culture, Resulted Pending Medications Current Medications Fentanyl Citrate (Fentanyl 2ml Vial) 50 mcg 1X ONCE IVP Last administered on 01/26/20at 07:32; Start 01/26/20 at 07:15; Stop 01/26/20 at 07:16; Status DC Piperacillin Sod/ Tazobactam Sod 3.375 gm/Sodium Chloride 50 ml @ 100 mls/hr 1X ONCE IV Last administered on 01/26/20at 07:34; Start 01/26/20 at 07:15; Stop at 07:44; Status DC Iohexol (Omnipaque 300 Mg/ml) 75 ml 1X ONCE IV Last administered on 01/26/20at 08:45; Start 01/26/20 at 08:30; Stop 01/26/20 at 08:31; Status DC Sodium Chloride 1,000 ml @ 100 mls/hr Q10H IV Last administered on 01/26/20at 21:58; Start 01/26/20 at 09:58 Ondansetron HCl (Zofran) 4 mg PRN Q4HRS PRN IV NAUSEA/VOMITING; Start 01/26/20 at 10:00 Zolpidem Tartrate (Ambien) 5 mg PRN QHS PRN PO INSOMNIA; Start 01/26/20 at 10:00 Acetaminophen (Tylenol) 650 mg PRN Q4HRS PRN PO TEMP OVER 100.4F OR MILD PAIN; Start 01/26/20 at 10:00 Docusate Sodium (Colace) 100 mg PRN BID PRN PO HARD STOOLS; Start 01/26/20 at 10:00 Albuterol Sulfate (Ventolin Neb Soln) 2.5 mg PRN Q4HRS PRN NEB SHORTNESS OF BREATH; Start 01/26/20 at 10:00 Guaifenesin (Robitussin) 200 mg PRN Q4HRS PRN PO COUGH; Start 01/26/20 at 10:00 Lorazepam (Ativan) 0.5 mg PRN Q4HRS PRN PO ANXIETY / AGITATION; Start 01/26/20 at 10:00 Piperacillin Sod/ Tazobactam Sod 4.5 gm/Sodium Chloride 100 ml @ 200 mls/hr Q6H IV ; Start 01/26/20 at 10:00; Status UNV Morphine Sulfate (Morphine Sulfate) 2 mg PRN Q3HRS PRN IV severe pain Last administered on 01/26/20at 21:58; Start 01/26/20 at 10:00 Ondansetron HCl (Zofran) 4 mg PRN Q8HRS PRN IV NAUSEA/VOMITING; Start 01/26/20 at 10:15; Stop 01/27/20 at 10:14 Morphine Sulfate (Morphine Sulfate) 4 mg PRN Q2HR PRN IV PAIN Last administered on 01/26/20at 12:48; Start 01/26/20 at 10:15; Stop 01/27/20 at 10:14 Piperacillin Sod/ Tazobactam Sod 3.375 gm/Sodium Chloride 50 ml @ 100 mls/hr Q6HRS IV Last administered on 01/27/20at 06:01; Start 01/26/20 at 12:00 Ondansetron HCl (Zofran) 4 mg PRN Q6HRS PRN IV NAUSEA/VOMITING; Start 01/27/20 at 07:00; Stop 01/28/20 at 06:59 Fentanyl Citrate (Fentanyl 2ml Vial) 25 mcg PRN Q5MIN PRN IV MILD PAIN 1-3; Start 01/27/20 at 07:00; Stop 01/28/20 at 06:59 Fentanyl Citrate (Fentanyl 2ml Vial) 50 mcg PRN Q5MIN PRN IV MODERATE TO SEVERE PAIN; Start 01/27/20 at 07:00; Stop 01/28/20 at 06:59 Morphine Sulfate (Morphine Sulfate) 1 mg PRN Q10MIN PRN IV SEVERE PAIN 7-10; Start 01/27/20 at 07:00; Stop 01/28/20 at 06:59 Ringer's Solution 1,000 ml @ 30 mls/hr Q24H IV ; Start 01/27/20 at 07:00; Stop 01/27/20 at 18:59 Lidocaine HCl (Xylocaine-Mpf 1% 2ml Vial) 2 ml PRN 1X PRN ID PRIOR TO IV START; Start 01/27/20 at 07:00; Stop 01/28/20 at 06:59 Hydromorphone HCl (Dilaudid) 0.5 mg PRN Q10MIN PRN IV SEV PAIN, Second choice; Start 01/27/20 at 07:00; Stop 01/28/20 at 06:59 Prochlorperazine Edisylate (Compazine) 5 mg PACU PRN PRN IV NAUSEA, MRX1; Start 01/27/20 at 07:00; Stop 01/28/20 at 06:59 Propofol (Diprivan) 200 mg STK-MED ONCE IV ; Start 01/27/20 at 08:30; Stop 01/27/20 at 08:30; Status DC Lidocaine HCl (Lidocaine Pf 2% Vial) 5 ml STK-MED ONCE .ROUTE ; Start 01/27/20 at 08:30; Stop 01/27/20 at 08:31; Status DC Ondansetron HCl (Zofran) 4 mg STK-MED ONCE .ROUTE ; Start 01/27/20 at 08:30; Stop 01/27/20 at 08:31; Status DC Dexamethasone Sodium Phosphate (Decadron) 4 mg STK-MED ONCE .ROUTE ; Start 01/26 at 08:30; Stop 01/27/20 at 08:31; Status DC Fentanyl Citrate (Fentanyl 2ml Vial) 100 mcg STK-MED ONCE .ROUTE ; Start 01/27/20 at 08:30; Stop 01/27/20 at 08:31; Status DC Midazolam HCl (Versed) 2 mg STK-MED ONCE .ROUTE ; Start 01/27/20 at 08:30; Stop 01/27/20 at 08:31; Status DC Active Scripts Active Reported Arimidex (Anastrozole) 1 Mg Tablet 1 Tab PO DAILY 30 Days Colace (Docusate Sodium) 100 Mg Capsule 100 Mg PO DAILY Vitals/I & O Vital Sign - Last 24 Hours 01/26/20 01/26/20 01/26/20 01/26/20 10:00 10:25 10:30 11:00 Pulse 76 74 66 Resp 16 14 16 16 B/P (MAP) 132/65 (87) 119/66 (83) 110/57 (74) Pulse Ox 97 97 98 96 O2 Delivery Room Air Room Air Room Air Room Air 01/26/20 01/26/20 01/26/20 01/26/20 11:15 11:25 12:00 12:48 Temp 99.2 99.2 Pulse 68 Resp 17 B/P (MAP) 122/66 (84) Pulse Ox 97 97 O2 Delivery Room Air Room Air Room Air Room Air 01/26/20 01/26/20 01/26/20 01/26/20 13:22 15:00 19:00 20:00 Temp 98.9 98.4 98.9 98.4 Pulse 70 69 Resp 17 18 B/P (MAP) 124/68 (86) 113/65 (81) Pulse Ox 97 98 O2 Delivery Room Air Room Air Room Air Room Air 01/26/20 01/26/20 01/26/20 01/27/20 21:58 22:28 23:00 03:00 Temp 98.5 98.4 98.5 98.4 Pulse 66 66 Resp 18 18 B/P (MAP) 102/54 (70) 120/69 (86) Pulse Ox 97 96 O2 Delivery Room Air Room Air Room Air Room Air 01/27/20 01/27/20 01/27/20 07:06 08:00 08:50 Temp 98.0 98.0 98.0 98.0 Pulse 73 63 Resp 18 15 B/P (MAP) 117/60 (79) 125/71 Pulse Ox 97 98 O2 Delivery Room Air Room Air Room Air Intake and Output 01/26/20 01/26/20 01/27/20 15:00 23:00 07:00 Intake Total 300 ml 0 ml Balance 300 ml 0 ml ORVILLE WINKLER MD Jan 27, 2020 09:35
[2020-01-27] MEDS ORDERED: BUPIVACAINE-EPI 0.5%-1:200000 MPF 30 ML VIAL. ONE (09:40)
--- NOTE | 2020-01-27 11:02 | PDOC4 ---
Operative Note Operative Note Operative Note: Preoperative Diagnosis: Perirectal abscess Postoperative Diagnosis: Perianal mass, perirectal abscess Procedure: Incision and drainage of perirectal abscess, excision of perianal mass Surgeon: George Anesthesia: General EBL: 10 mL Specimen: Perianal mass to pathology Drains: None Complications: None Indication: The patient is a 59-year-old female presented to the hospital with a perirectal abscess. In addition exam shows a protuberant mass consistent with an tag or external hemorrhoid. The plan is to proceed to the operating room for surgical management. The risks of surgery were discussed which include bleeding infection recurrence pain potential need for additional surgery procedure. She understands and would like to proceed. Description: The patient was taken to the operating room and placed supine on the operating table. General anesthesia was performed. She was then placed in lithotomy. The perianal skin was prepped with Betadine and draped in a standard surgical manner. The patient appears to have spontaneously drained much of the abscess. The abscess cavity was located along the right perirectal tissues. There was an exit site inferiorly at the 7 o'clock position while in lithotomy. The exit site was opened some to facilitate drainage. The cavity extended superiorly a short distance. Just superior to the exit site was a protuberant perianal mass consistent with a tag or hemorrhoid. This was excised with the assistance of the LigaSure device and sent to pathology. The perianal skin was reapproximated with 3-0 Vicryl. The abscess cavity was washed with sterile saline and suction. A sterile dressing was then applied. The patient tolerated the procedure well sent to the recovery room in stable condition. At the end of the case all counts were correct. ABBY AVILA MD Jan 27, 2020 11:02
[2020-01-27] MEDS: fentaNYL PF VIAL 100 MCG/2 ML VIAL IV PRN ×2 (11:23→11:35)
--- NOTE | 2020-01-27 14:58 | NUR ---
SW following. Discussed with RN, pt from home, had surgery today - pt wanting to go home tomorrow (01/28/2020). SW will continue to follow.
--- NOTE | 2020-01-27 19:12 | NUR ---
Ivon returned from surgery at noon. she has tolerated regular food and water. 4x4 and mesh panties remains in place; small amount of drainage. denies need for pain medication at this time/shift. would like to go home tomorrow. family brought her ipad in.
[2020-01-27] MEDS: LACTOBACILLUS RHAMNOSUS GG 1 CAPSULE. PO SCH (21:23)
[2020-01-28] MEDS: IV NORMAL SALINE 1000ML BAG 1,000 ML IV SCH ×2 (01:58→11:58)
[2020-01-28 03:07] VITALS: BP 113/54
[2020-01-28] MEDS: PIPERACILLIN/TAZOBACTAM 3.375 GM in IV NORMAL SALINE 50ML 50 ML IV SCH ×2 (05:58→12:00)
[2020-01-28] MEDS ORDERED: KETOROLAC 30 MG/ML VIAL. IVP ONE (06:00)
[2020-01-28] MEDS ORDERED: KETOROLAC 15 MG/ML VIAL. IVP PRN (06:00)
[2020-01-28 07:00] VITALS: BP 144/74
[2020-01-28] MEDS: LACTOBACILLUS RHAMNOSUS GG 1 CAPSULE. PO SCH (08:38)
--- NOTE | 2020-01-28 09:14 | NUR ---
SW following. Discussed with RN, pt wanting to go home. RN anticipating switch to oral abx and possible discharge home today with self care. RN advised no SW needs at this time. SW will continue to follow.
--- NOTE | 2020-01-28 10:11 | PDOC ---
PROGRESS NOTES History of Present Illness History of Present Illness VTE Prophylaxis Ordered VTE Prophylaxis Devices: Yes VTE Pharmacological Prophylaxi: No DISCHARGE DX Assessment/Plan Perirectal pain perianal abscess History of hemorrhoids History of constipation History of breast cancer currently in remission Hyperglycemia of unknown clinical significance, she denies compatible symptoms of diabetes Plan Consult surgery Broad-spectrum antibiotic Pain management Resume home medications once available for review DVT prophylaxis with SCDs d/w RN d/c on po augmentin 500mg bid x 10 days, lactobacillus / D/C PLANNING 34 MIN Operative Note Operative Note: Preoperative Diagnosis: Perirectal abscess Postoperative Diagnosis: Perianal mass, perirectal abscess Procedure: Incision and drainage of perirectal abscess, excision of perianal mass Surgeon: George Anesthesia: General EBL: 10 mL Specimen: Perianal mass to pathology Drains: None Complications: None Justicifation of Admission Dx: Justicifation of Admission Dx: Justifications for Admission: Justification of Admission Dx: Yes Comments: Perianal abscess requiring surgical assessment Vitals Vitals Vital Signs Date Time Temp Pulse Resp B/P (MAP) Pulse Ox O2 Delivery O2 Flow Rate FiO2 01/28/20 07:00 97.4 57 17 144/74 (97) 96 Room Air 97.4 01/27/20 10:55 10 Physical Exam General: Alert, Oriented X3, Cooperative Heart: Regular rate Lungs: Clear Abdomen: Normal bowel sounds, Soft, No tenderness Extremities: No clubbing, No cyanosis Skin: No rashes Assessment and Plan Assessmemt and Plan Problems Medical Problems: (1) Perianal abscess Status: Acute Comment Review of Relevant I have reviewed the following items chantel (where applicable) has been applied. Labs Microbiology 01/26/20 Gram Stain - Final, Resulted 01/26/20 Aerobic and Anaerobic Culture - Preliminary, Resulted Medications Current Medications Fentanyl Citrate (Fentanyl 2ml Vial) 50 mcg 1X ONCE IVP Last administered on 01/26/20at 07:32; Start 01/26/20 at 07:15; Stop 01/26/20 at 07:16; Status DC Piperacillin Sod/ Tazobactam Sod 3.375 gm/Sodium Chloride 50 ml @ 100 mls/hr 1X ONCE IV Last administered on 01/26/20at 07:34; Start 01/26/20 at 07:15; Stop 01/26/20 at 07:44; Status DC Iohexol (Omnipaque 300 Mg/ml) 75 ml 1X ONCE IV Last administered on 01/26/20at 08:45; Start 01/26/20 at 08:30; Stop 01/26/20 at 08:31; Status DC Sodium Chloride 1,000 ml @ 100 mls/hr Q10H IV Last administered on 01/26/20at 21:58; Start 01/26/20 at 09:58 Ondansetron HCl (Zofran) 4 mg PRN Q4HRS PRN IV NAUSEA/VOMITING; Start 01/26/20 at 10:00 Zolpidem Tartrate (Ambien) 5 mg PRN QHS PRN PO INSOMNIA; Start 01/26/20 at 10:00 Acetaminophen (Tylenol) 650 mg PRN Q4HRS PRN PO TEMP OVER 100.4F OR MILD PAIN; Start 01/26/20 at 10:00 Docusate Sodium (Colace) 100 mg PRN BID PRN PO HARD STOOLS; Start 01/26/20 at 10:00 Albuterol Sulfate (Ventolin Neb Soln) 2.5 mg PRN Q4HRS PRN NEB SHORTNESS OF BREATH; Start 01/26/20 at 10:00 Guaifenesin (Robitussin) 200 mg PRN Q4HRS PRN PO COUGH; Start 01/26/20 at 10:00 Lorazepam (Ativan) 0.5 mg PRN Q4HRS PRN PO ANXIETY / AGITATION; Start 01/26/20 at 10:00 Piperacillin Sod/ Tazobactam Sod 4.5 gm/Sodium Chloride 100 ml @ 200 mls/hr Q6H IV ; Start 01/26/20 at 10:00; Status UNV Morphine Sulfate (Morphine Sulfate) 2 mg PRN Q3HRS PRN IV severe pain Last administered on 01/26/20at 21:58; Start 01/26/20 at 10:00 Ondansetron HCl (Zofran) 4 mg PRN Q8HRS PRN IV NAUSEA/VOMITING; Start 01/26/20 at 10:15; Stop 01/27/20 at 10:14; Status DC Morphine Sulfate (Morphine Sulfate) 4 mg PRN Q2HR PRN IV PAIN Last administered on 01/26/20at 12:48; Start 01/26/20 at 10:15; Stop 01/27/20 at 10:14; Status DC Piperacillin Sod/ Tazobactam Sod 3.375 gm/Sodium Chloride 50 ml @ 100 mls/hr Q6HRS IV Last administered on 01/28/20at 05:58; Start 01/26/20 at 12:00 Ondansetron HCl (Zofran) 4 mg PRN Q6HRS PRN IV NAUSEA/VOMITING; Start 01/27/20 at 07:00; Stop 01/27/20 at 17:04; Status DC Fentanyl Citrate (Fentanyl 2ml Vial) 25 mcg PRN Q5MIN PRN IV MILD PAIN 1-3 Last administered on 01/27/20at 11:35; Start 01/27/20 at 07:00; Stop 01/27/20 at 17:05; Status DC Fentanyl Citrate (Fentanyl 2ml Vial) 50 mcg PRN Q5MIN PRN IV MODERATE TO SEVERE PAIN; Start 01/27/20 at 07:00; Stop 01/27/20 at 17:06; Status DC Morphine Sulfate (Morphine Sulfate) 1 mg PRN Q10MIN PRN IV SEVERE PAIN 7-10; Start 01/27/20 at 07:00; Stop 01/27/20 at 17:06; Status DC Ringer's Solution 1,000 ml @ 30 mls/hr Q24H IV ; Start 01/27/20 at 07:00; Stop 01/27/20 at 17:06; Status DC Lidocaine HCl (Xylocaine-Mpf 1% 2ml Vial) 2 ml PRN 1X PRN ID PRIOR TO IV START; Start 01/27/20 at 07:00; Stop 01/27/20 at 17:06; Status DC Hydromorphone HCl (Dilaudid) 0.5 mg PRN Q10MIN PRN IV SEV PAIN, Second choice; Start 01/27/20 at 07:00; Stop 01/27/20 at 17:07; Status DC Prochlorperazine Edisylate (Compazine) 5 mg PACU PRN PRN IV NAUSEA, MRX1; Start 01/27/20 at 07:00; Stop 01/27/20 at 17:07; Status DC Propofol (Diprivan) 200 mg STK-MED ONCE IV ; Start 01/27/20 at 08:30; Stop 01/27/20 at 08:30; Status DC Lidocaine HCl (Lidocaine Pf 2% Vial) 5 ml STK-MED ONCE .ROUTE ; Start 01/27/20 at 08:30; Stop 01/27/20 at 08:31; Status DC Ondansetron HCl (Zofran) 4 mg STK-MED ONCE .ROUTE ; Start 01/27/20 at 08:30; St op 01/27/20 at 08:31; Status DC Dexamethasone Sodium Phosphate (Decadron) 4 mg STK-MED ONCE .ROUTE ; Start 01/27/20 at 08:30; Stop 01/27/20 at 08:31; Status DC Fentanyl Citrate (Fentanyl 2ml Vial) 100 mcg STK-MED ONCE .ROUTE ; Start 01/27/20 at 08:30; Stop 01/27/20 at 08:31; Status DC Midazolam HCl (Versed) 2 mg STK-MED ONCE .ROUTE ; Start 01/27/20 at 08:30; Stop 01/27/20 at 08:31; Status DC Bupivacaine HCl/ Epinephrine Bitart (Sensorcain-Epi 0.5%-1:170393 Mpf) 30 ml STK-MED ONCE .ROUTE ; Start 01/27/20 at 09:40; Stop 01/27/20 at 09:40; Status DC Fentanyl Citrate (Fentanyl 2ml Vial) 100 mcg STK-MED ONCE .ROUTE ; Start 01/27/20 at 11:20; Stop 01/27/20 at 11:21; Status DC Lactobacillus Rhamnosus (Culturelle) 1 cap BID PO Last administered on 01/28/20at 08:38; Start 01/27/20 at 21:00 Ketorolac Tromethamine (Toradol 30mg Vial) 30 mg 1X ONCE IVP Last administered on 01/28/20at 05:58; Start 01/28/20 at 06:00; Stop 01/28/20 at 06:01; Status DC Ketorolac Tromethamine (Toradol 15mg Vial) 15 mg PRN Q6HRS PRN IVP MODERATE PAIN 4-6; Start 01/28/20 at 06:00; Stop 02/02/20 at 05:59 Active Scripts Active Reported Arimidex (Anastrozole) 1 Mg Tablet 1 Tab PO DAILY 30 Days Colace (Docusate Sodium) 100 Mg Capsule 100 Mg PO DAILY Vitals/I & O Vital Sign - Last 24 Hours 01/27/20 01/27/20 01/27/20 01/27/20 10:38 10:38 10:55 11:10 Temp 97.6 97.6 97.6 97.6 97.6 97.6 Pulse 62 50 52 Resp 16 16 15 B/P (MAP) 114/69 126/74 117/65 Pulse Ox 100 100 97 O2 Delivery Simple Mask Mask Simple Mask Room Air O2 Flow Rate 10 10 10 01/27/20 01/27/20 01/27/20 01/27/20 11:23 11:25 11:35 11:55 Temp 97.6 97.6 Pulse 54 62 Resp 16 16 15 18 B/P (MAP) 112/66 125/40 (68) Pulse Ox 97 97 97 96 O2 Delivery Room Air Room Air Room Air Room Air 01/27/20 01/27/20 01/27/20 01/27/20 12:10 12:25 12:40 13:10 Pulse 59 52 67 72 Resp 18 18 18 B/P (MAP) 125/66 (85) 111/56 (74) 111/57 (75) 123/79 (94) Pulse Ox 93 92 95 96 O2 Delivery Room Air Room Air Room Air Room Air 01/27/20 01/27/20 01/27/20 01/27/20 13:40 14:40 15:04 19:31 Temp 98.2 98.2 Pulse 55 61 55 69 Resp 16 B/P (MAP) 96/47 (63) 102/52 (69) 94/51 (65) 109/68 (82) Pulse Ox 95 95 96 98 O2 Delivery Room Air Room Air Room Air Room Air 01/27/20 01/27/20 01/28/20 01/28/20 20:00 23:24 03:07 07:00 Temp 98.0 98.0 97.4 98.0 98.0 97.4 Pulse 62 50 57 Resp 14 14 17 B/P (MAP) 107/54 (71) 113/54 (73) 144/74 (97) Pulse Ox 98 96 96 O2 Delivery Room Air Room Air Room Air Room Air Intake and Output 01/27/20 01/27/20 01/28/20 14:59 22:59 06:59 Intake Total 1600 ml 1190 ml Output Total 5 ml Balance 1595 ml 1190 ml ORVILLE WINKLER MD Jan 28, 2020 10:11
[2020-01-28 11:01] VITALS: BP 101/55
--- NOTE | 2020-01-28 12:08 | PDOC3 ---
Discharge Summary Date of Admission: Jan 26, 2020 Date of Discharge: Jan 28, 2020 Follow-Up: 3-5 days Admitting Diagnosis comment: DISCHARGE DX Assessment/Plan Perirectal pain perianal abscess History of hemorrhoids History of constipation History of breast cancer currently in remission Hyperglycemia of unknown clinical significance, she denies compatible symptoms o f diabetes Plan Consult surgery Broad-spectrum antibiotic Pain management Resume home medications once available for review DVT prophylaxis with SCDs d/w RN d/c on po augmentin 500mg bid x 10 days, lactobacillus 01/27 D/C PLANNING 34 MIN Operative Note Operative Note: Preoperative Diagnosis: Perirectal abscess Postoperative Diagnosis: Perianal mass, perirectal abscess Procedure: Incision and drainage of perirectal abscess, excision of perianal mass Surgeon: George Anesthesia: General EBL: 10 mL Specimen: Perianal mass to pathology Drains: None Complications: None Justicifation of Admission Dx: Justicifation of Admission Dx: Justifications for Admission: Justification of Admission Dx: Yes Comments: Perianal abscess requiring surgical assessment Vitals Vitals Vital Signs Date Time Temp Pulse Resp B/P (MAP) Pulse Ox O2 Delivery O2 Flow Rate FiO2 01/28/20 07:00 97.4 57 17 144/74 (97) 96 Room Air 97.4 01/27/20 10:55 10 Physical Exam General: Alert, Oriented X3, Cooperative Heart: Regular rate Lungs: Clear Abdomen: Normal bowel sounds, Soft, No tenderness Extremities: No clubbing, No cyanosis Skin: No rashes FINAL DIAGNOSIS Problems Medical Problems: (1) Perianal abscess Status: Acute Brief Hospital Course Ms. Ramsey is a 59 old [sex] who presented with [ PERIRECTAL ABSCESS] CONDITION AT DISCHARGE: Improved Discharge Medications Current Medications Fentanyl Citrate (Fentanyl 2ml Vial) 50 mcg 1X ONCE IVP Last administered on 01/26/20at 07:32; Start 01/26/20 at 07:15; Stop 01/26/20 at 07:16; Status DC Piperacillin Sod/ Tazobactam Sod 3.375 gm/Sodium Chloride 50 ml @ 100 mls/hr 1X ONCE IV Last administered on 01/26/20at 07:34; Start 01/26/20 at 07:15; Stop 01/26/20 at 07:44; Status DC Iohexol (Omnipaque 300 Mg/ml) 75 ml 1X ONCE IV Last administered on 01/26/20at 08:45; Start 01/26/20 at 08:30; Stop 01/26/20 at 08:31; Status DC Sodium Chloride 1,000 ml @ 100 mls/hr Q10H IV Last administered on 01/26/20at 21:58; Start 01/26/20 at 09:58 Ondansetron HCl (Zofran) 4 mg PRN Q4HRS PRN IV NAUSEA/VOMITING; Start 01/26/20 at 10:00 Zolpidem Tartrate (Ambien) 5 mg PRN QHS PRN PO INSOMNIA; Start 01/26/20 at 10:00 Acetaminophen (Tylenol) 650 mg PRN Q4HRS PRN PO TEMP OVER 100.4F OR MILD PAIN; Start 01/26/20 at 10:00 Docusate Sodium (Colace) 100 mg PRN BID PRN PO HARD STOOLS; Start 01/26/20 at 10:00 Albuterol Sulfate (Ventolin Neb Soln) 2.5 mg PRN Q4HRS PRN NEB SHORTNESS OF BREATH; Start 01/26/20 at 10:00 Guaifenesin (Robitussin) 200 mg PRN Q4HRS PRN PO COUGH; Start 01/26/20 at 10:00 Lorazepam (Ativan) 0.5 mg PRN Q4HRS PRN PO ANXIETY / AGITATION; Start 01/26/20 at 10:00 Piperacillin Sod/ Tazobactam Sod 4.5 gm/Sodium Chloride 100 ml @ 200 mls/hr Q6H IV ; Start 01/26/20 at 10:00; Status UNV Morphine Sulfate (Morphine Sulfate) 2 mg PRN Q3HRS PRN IV severe pain Last ad ministered on 01/26/20at 21:58; Start 01/26/20 at 10:00 Ondansetron HCl (Zofran) 4 mg PRN Q8HRS PRN IV NAUSEA/VOMITING; Start 01/26/20 at 10:15; Stop 01/27/20 at 10:14; Status DC Morphine Sulfate (Morphine Sulfate) 4 mg PRN Q2HR PRN IV PAIN Last administered on 01/26/20at 12:48; Start 01/26/20 at 10:15; Stop 01/27/20 at 10:14; Status DC Piperacillin Sod/ Tazobactam Sod 3.375 gm/Sodium Chloride 50 ml @ 100 mls/hr Q6HRS IV Last administered on 01/28/20at 05:58; Start 01/26/20 at 12:00 Ondansetron HCl (Zofran) 4 mg PRN Q6HRS PRN IV NAUSEA/VOMITING; Start 01/27/20 at 07:00; Stop 01/27/20 at 17:04; Status DC Fentanyl Citrate (Fentanyl 2ml Vial) 25 mcg PRN Q5MIN PRN IV MILD PAIN 1-3 Last administered on 01/27/20at 11:35; Start 01/27/20 at 07:00; Stop 01/27/20 at 17:05; Status DC Fentanyl Citrate (Fentanyl 2ml Vial) 50 mcg PRN Q5MIN PRN IV MODERATE TO SEVERE PAIN; Start 01/27/20 at 07:00; Stop 01/27/20 at 17:06; Status DC Morphine Sulfate (Morphine Sulfate) 1 mg PRN Q10MIN PRN IV SEVERE PAIN 7-10; Start 01/27/20 at 07:00; Stop 01/27/20 at 17:06; Status DC Ringer's Solution 1,000 ml @ 30 mls/hr Q24H IV ; Start 01/27/20 at 07:00; Stop 01/27/20 at 17:06; Status DC Lidocaine HCl (Xylocaine-Mpf 1% 2ml Vial) 2 ml PRN 1X PRN ID PRIOR TO IV START; Start 01/27/20 at 07:00; Stop 01/27/20 at 17:06; Status DC Hydromorphone HCl (Dilaudid) 0.5 mg PRN Q10MIN PRN IV SEV PAIN, Second choice; Start 01/27/20 at 07:00; Stop 01/27/20 at 17:07; Status DC Prochlorperazine Edisylate (Compazine) 5 mg PACU PRN PRN IV NAUSEA, MRX1; Start 01/27/20 at 07:00; Stop 01/27/20 at 17:07; Status DC Propofol (Diprivan) 200 mg STK-MED ONCE IV ; Start 01/27/20 at 08:30; Stop 01/27/20 at 08:30; Status DC Lidocaine HCl (Lidocaine Pf 2% Vial) 5 ml STK-MED ONCE .ROUTE ; Start 01/27/20 at 08:30; Stop 01/27/20 at 08:31; Status DC Ondansetron HCl (Zofran) 4 mg STK-MED ONCE .ROUTE ; Start 01/27/20 at 08:30; Stop 01/27/20 at 08:31; Status DC Dexamethasone Sodium Phosphate (Decadron) 4 mg STK-MED ONCE .ROUTE ; Start 01/27/20 at 08:30; Stop 01/27/20 at 08:31; Status DC Fentanyl Citrate (Fentanyl 2ml Vial) 100 mcg STK-MED ONCE .ROUTE ; Start 01/27/20 at 08:30; Stop 01/27/20 at 08:31; Status DC Midazolam HCl (Versed) 2 mg STK-MED ONCE .ROUTE ; Start 01/27/20 at 08:30; Stop 01/27/20 at 08:31; Status DC Bupivacaine HCl/ Epinephrine Bitart (Sensorcain-Epi 0.5%-1:756930 Mpf) 30 ml STK-MED ONCE .ROUTE ; Start 01/27/20 at 09:40; Stop 01/27/20 at 09:40; Status DC Fentanyl Citrate (Fentanyl 2ml Vial) 100 mcg STK-MED ONCE .ROUTE ; Start 01/27/20 at 11:20; Stop 01/27/20 at 11:21; Status DC Lactobacillus Rhamnosus (Culturelle) 1 cap BID PO Last administered on 01/28/20at 08:38; Start 01/27/20 at 21:00 Ketorolac Tromethamine (Toradol 30mg Vial) 30 mg 1X ONCE IVP Last administered on 01/28/20at 05:58; Start 01/28/20 at 06:00; Stop 01/28/20 at 06:01; Status DC Ketorolac Tromethamine (Toradol 15mg Vial) 15 mg PRN Q6HRS PRN IVP MODERATE PAIN 4-6; Start 01/28/20 at 06:00; Stop 02/02/20 at 05:59 Active Scripts Active Reported Arimidex (Anastrozole) 1 Mg Tablet 1 Tab PO DAILY 30 Days Colace (Docusate Sodium) 100 Mg Capsule 100 Mg PO DAILY Vital Signs Vital Signs Date Time Temp Pulse Resp B/P (MAP) Pulse Ox O2 Delivery O2 Flow Rate FiO2 01/28/20 11:01 97.4 51 16 101/55 (70) 97 Room Air 97.4 01/27/20 10:55 10 Allergies Allergies Coded Allergies Type Severity Reaction Last Updated Verified No Known Drug Allergies 01/26/20 No Disposition/Orders: D/C to Home Justicifation of Admission Dx: Justifications for Admission: Justification of Admission Dx: Yes ORIVLLE WINKLER MD Jan 28, 2020 12:08
[2020-01-28] MEDS ORDERED: ACET325T9 PO (12:11)
[2020-01-28] MEDS ORDERED: AMOX1TAB58 PO (12:11)
[2020-01-28] MEDS ORDERED: LACT1CAP19 PO (12:11)
--- NOTE | 2020-01-28 12:13 | DISCH ---
DISCHARGE INSTRUCTIONS Condition on Discharge Condition on Discharge: Stable Activity After Discharge Activity Instructions for Disc: Activity as tolerated Lifting Instructions after Dis: No heavy lifting, No pulling or pushing Driving Instructions after Dis: Do not drive today Diet after Discharge Diet after Discharge: Regular Checks after Discharge Checks after discharge: Check blood press - daily Contacting the after DC Call your doctor for: If your condition worsens Treatment/Equipment after DC Adaptive Equipment Issued: None Warfarin Follow-Up Warfarin Follow UP: F/U WITH DR AVILA DIRECTED ORVILLE WINKLER MD Jan 28, 2020 12:13
--- NOTE | 2020-01-29 17:06 | PATHOLOGY ---
[facility] Accession Number: [id number] . 01 Material submitted: . anus - ANAL TAG . 01 Clinical history: . Perirectal abscess . 02 Diagnosis: Skin and squamous mucosa, anal region: - Fibroepithelial polyp (anal tag), showing edema and chronic and focal acute inflammation. ([facility] 01/29/2020) [facility] 01/29/2020 1306 Local . 02 Comment: There is no evidence of malignancy. ([facility] 01/29/2020) . 02 Electronically signed: . Alex Hoffmann MD, Pathologist NPI- [id number] . 01 Gross description: . The specimen is received in formalin, labeled "Gumpert, Tonya, anal tag" and consists of a polypoid segment of pink-domingo tissue measuring 1.5 x 0.7 x 1.2 cm. The margin is inked black. It is serially sectioned and entirely submitted in A1. ([facility]; 01/28/2020) SYU/SYU 01/28/2020 1022 Local . 02 Pathologist provided ICD-10: K64.4 . 02 CPT . 897267 Specimen Comment: A courtesy copy of this report has been sent to [phone] Specimen Comment: [id number] Specimen Comment: Report sent to / DR MEJIA Performed at: 01 [facility] [address], [place] [id number] MD Dionicio Meyer MD Phone: [phone] Performed at: 02 [facility] [address] [place], [place] [id number] MD Alex Hoffmann MD Phone: [phone]
== END 2020-01-28 13:30 | disposition home or self-care (01) | DRG 395 ==
LOC: ER 05:22 → 4 NORTH 10:00 → OBSVTOIN 14:21
PROVIDERS: ADMIT Internal Medicine; ATTEND Internal Medicine
PROC: 0HB9XZZ Excision of Perineum Skin, External Approach (ICD-10-PCS; 2020-01-27)
PROC: 0D9P3ZZ Drainage of Rectum, Percutaneous Approach (ICD-10-PCS; principal; 2020-01-27 10:00)
DX: K61.2 Anorectal abscess (principal); F17.210 Nicotine dependence, cigarettes, uncomplicated; R73.9 Hyperglycemia, unspecified; Z20.828 Contact with and (suspected) exposure to other viral communicable diseases; Z85.3 Personal history of malignant neoplasm of breast; Z92.21 Personal history of antineoplastic chemotherapy; Z92.3 Personal history of irradiation
CPT/HCPCS: 36415; 72193; 80053; 85025; 85610; 85730; 87071; 87075; 94760; 96365; 96375; A7015; G0378; G0379; J1100; J1885; J2250; J2270; J2405; J2543; J2704; J3010; J3490; J7030; Q9967; 99285-25; A4461; U0003-CS